=== PATIENT | female | born 1965 | race Caucasian/White ===

== ENCOUNTER 2021-02-23 19:42 | Inpatient (IN) | payer OTHER ==
[~2021-02-23] VITALS: Ht 170.2 cm; Wt 97.6 kg
[2021-02-23 20:34] LABS: Basophils # (auto) 0.1 10 ^3/uL (0-0.2); Basophils % (auto) 0.8 % (0.0-2.0); Eosinophils # (auto) 0.3 10 ^3/uL (0-0.8); Eosinophils % (auto) 4.1 % (0.0-7.0); Hematocrit 26.9 % (36.0-46.0); Lymphocytes # (auto) 0.9 10 ^3/uL (0.4-5.4); Lymphocytes % (auto) 10.5 % (10.0-50.0); Mean Corpuscular Hemoglobin 30.5 pg (28.0-32.0); Mean Corpuscular Hgb Conc. 33.6 g/dL (32.0-36.0); Mean Corpuscular Volume 90.6 fL (80.0-100.0); Monocytes # (auto) 0.5 10 ^3/uL (0-1.3); Monocytes % (auto) 6.1 % (0.0-12.0); Neutrophils # (auto) 6.5 10 ^3/uL (1.6-8.6); Neutrophils % (auto) 78.5 % (37.0-80.0); Red Blood Cells 2.96 10^6/uL (4.0-5.20); White Blood Cell 8.3 10^3/uL (4.4-10.8)
[2021-02-23 20:51] LABS: Magnesium 2.4 mg/dL (1.6-2.6)
[2021-02-23 20:55] LABS: BUN/Creatinine Ratio 11.8; Bilirubin, Total 0.3 mg/dL (0.2-1.0); Total Protein 7.2 g/dL (6.4-8.2)
[2021-02-23 20:58] LABS: INR 1.11 (0.9-1.15); Partial Thromboplastin Time 26.2 sec (23.6-33.0)
[2021-02-23 21:47] LABS: Potassium 5.7 mmol/L (3.5-5.1)
[2021-02-23] MEDS ORDERED: SODIUM BICARBONATE 8.4 % INJ 50ML VIAL IV ONE (22:00)
[2021-02-23] MEDS ORDERED: CALCIUM GLUC 1,000mg/50ml-NS 50 ML IV ONE (22:00)
[2021-02-23] MEDS ORDERED: DOCUSATE SOD 100 MG CAP PO PRN (22:30)
[2021-02-23] MEDS ORDERED: ACETAMINOPHEN 325 MG TAB PO PRN (22:30)
[2021-02-23] MEDS ORDERED: MORPHINE SULFATE INJECTION 2 MG/ML SYRG IV PRN (22:30)
[2021-02-23] MEDS ORDERED: NITROGLYCERIN 0.4 MG SL TAB SL PRN (22:30)
[2021-02-23] MEDS ORDERED: DEXTROSE (50%) 50ML SYRG IV PRN (22:30)
[2021-02-24 01:50] LABS: Urine Bacteria FEW /hpf (None Seen); Urine Blood 1+ /uL (Negative); Urine Specific Gravity 1.014 (1.001-1.035); Urine WBC 182 /hpf (0 - 5)
[2021-02-24] MEDS: MORPHINE SULFATE 4 MG/ML SYR/VIAL IV PRN (02:30)
[2021-02-24] MEDS: ONDANSETRON HCL 4 MG/2 ML VIAL IV PRN (02:30)
[2021-02-24] MEDS: HYDROcodone-ACET 5/325MG TAB PO PRN ×3 (03:40→18:50)
[2021-02-24] MEDS: SODIUM CHLOR 0.9% PF (SALINE LOCK) 10ML VIAL/SYR IV SCH ×3 (06:15→22:00)
[2021-02-24] MEDS ORDERED: cefTRIAXone 1GM/50ML D5W 50 ML IV ONE (06:30)
[2021-02-24 06:42] LABS: Eosinophils # (auto) 0.3 10 ^3/uL (0-0.8); Hemoglobin 7.6 g/dL (12.2-16.2); Lymphocytes # (auto) 1.2 10 ^3/uL (0.4-5.4); Monocytes # (auto) 0.5 10 ^3/uL (0-1.3)
[2021-02-24 06:46] LABS: Basophils # (auto) 0.1 10 ^3/uL (0-0.2); Basophils % (auto) 0.8 % (0.0-2.0); Eosinophils % (auto) 4.1 % (0.0-7.0); Hematocrit 22.4 % (36.0-46.0); Lymphocytes % (auto) 15.1 % (10.0-50.0); Mean Corpuscular Hemoglobin 31.4 pg (28.0-32.0); Mean Corpuscular Volume 92.1 fL (80.0-100.0); Monocytes % (auto) 5.9 % (0.0-12.0); Neutrophils # (auto) 5.7 10 ^3/uL (1.6-8.6); Neutrophils % (auto) 74.1 % (37.0-80.0); Red Blood Cells 2.43 10^6/uL (4.0-5.20); Red Cell Distribution Width 14.7 % (11.8-14.3); White Blood Cell 7.8 10^3/uL (4.4-10.8)
[2021-02-24] MEDS: ACCU-CHEK COMFORT CURVE STRIP VI SCH ×4 (06:56→22:00)
[2021-02-24] MEDS: InsuLIN REG 1unit/0.01ml Soln (100units/ml) SC SCH ×3 (06:56→17:00)
[2021-02-24 07:03] LABS: Albumin 2.5 g/dL (3.4-5.0); Calcium 8.5 mg/dL (8.5-10.1)
[2021-02-24 07:07] LABS: BUN/Creatinine Ratio 12.3; Bilirubin, Total 0.2 mg/dL (0.2-1.0); Total Protein 6.2 g/dL (6.4-8.2)
[2021-02-24 07:28] LABS: Cholesterol 111 mg/dL (< 200); Triglycerides 95 mg/dL (< 150)
[2021-02-24 07:30] LABS: HDL Cholesterol 62 mg/dL (40-59); LDL Cholesterol 38 mg/dL (< 100)
[2021-02-24 08:35] LABS: Potassium 5.8 mmol/L (3.5-5.1)
[2021-02-24] MEDS ORDERED: SODIUM CHL 0.9% 1000 ML BAG XX ONE (09:00)
[2021-02-24] MEDS ORDERED: SODIUM ZIRCONIUM CYCL 10 GM PAK PO ONE (09:00)
[2021-02-24 09:18] VITALS: BP 158/74
[2021-02-24] MEDS: ASCORBIC ACID 500 MG TAB PO SCH (10:10)
[2021-02-24] MEDS: HEPARIN SODIUM (PORCINE) 5000 UNITS/ML 1ML VIAL SC SCH (10:10)
[2021-02-24] MEDS: ZINC SULFATE 220mg CAP or TAB PO SCH (10:10)
[2021-02-24] MEDS: SEVELAMER 800 MG TAB PO SCH ×3 (10:11→18:50)
[2021-02-24] MEDS: B-COMPLEX W/ C & FOLIC ACID(NEPHROVITE TAB) PO SCH (10:11)
[2021-02-24] MEDS: FAMOTIDINE (10MG/ML) 2ML VL IV SCH (10:12)
[2021-02-24] MEDS: FUROSEMIDE 20 MG/2 ML VIAL IV SCH (10:13)
[2021-02-24 10:44] LABS: % Iron Saturation 14.7 % (15-50)
[2021-02-24] MEDS ORDERED: CHOL20007 PO (10:48)
[2021-02-24] MEDS ORDERED: HYDR-4833 PO (10:55)
[2021-02-24] MEDS ORDERED: TORS20TA19 GT (10:55)
[2021-02-24] MEDS ORDERED: CALC0.25 PO (10:55)
[2021-02-24] MEDS ORDERED: FERR28TA2 PO (10:55)
[2021-02-24] MEDS ORDERED: SEVE800T8 PO (10:55)
[2021-02-24 11:15] VITALS: BP 158/74
[2021-02-24] MEDS ORDERED: SODIUM ZIRCONIUM CYCL 10 GM PAK PO SCH (14:00)
[2021-02-24 16:26] VITALS: BP 159/69
[2021-02-24] MEDS ORDERED: LIDOCAINE HCL (LOCAL ANESTH.) 0.5 % 50ML MDV IJ ONE ×2 (20:30→20:45)
[2021-02-24] MEDS ORDERED: EPOETIN ALFA-EPBX 4,000 UNIT/ML VIAL SC ONE (21:00)
[2021-02-24 22:00] VITALS: BP 170/72
[2021-02-24] MEDS ORDERED: InsuLIN REG 1unit/0.01ml Soln (100units/ml) SC SCH (22:00)
[2021-02-25] MEDS: HEPARIN SODIUM (PORCINE) 5000 UNITS/ML 1ML VIAL SC SCH ×3 (00:35→22:00)
[2021-02-25] MEDS: HYDROcodone-ACET 5/325MG TAB PO PRN ×2 (00:39→10:04)
[2021-02-25] MEDS: ASCORBIC ACID 500 MG TAB PO SCH ×3 (00:52→22:15)
[2021-02-25] MEDS: MORPHINE SULFATE 4 MG/ML SYR/VIAL IV PRN ×3 (01:12→13:23)
[2021-02-25] MEDS ORDERED: HYDR-4798 PO (01:26)
[2021-02-25] MEDS ORDERED: TRAZ1TAB12 PO (01:27)
[2021-02-25 05:00] VITALS: BP 161/61
[2021-02-25] MEDS: hydrALAZINE HCL 20 MG/ML VL IV PRN ×2 (05:31→11:54)
[2021-02-25] MEDS: SODIUM CHLOR 0.9% PF (SALINE LOCK) 10ML VIAL/SYR IV SCH ×3 (05:32→22:07)
[2021-02-25 06:01] LABS: BUN/Creatinine Ratio 10.3; Calcium 8.2 mg/dL (8.5-10.1); Potassium 4.3 mmol/L (3.5-5.1)
[2021-02-25] MEDS: ACCU-CHEK COMFORT CURVE STRIP VI SCH ×2 (06:16→11:45)
[2021-02-25] MEDS: InsuLIN REG 1unit/0.01ml Soln (100units/ml) SC SCH ×2 (06:16→11:30)
[2021-02-25 08:00] VITALS: BP 149/59
[2021-02-25 09:00] VITALS: BP 141/55
[2021-02-25] MEDS: FUROSEMIDE 20 MG/2 ML VIAL IV SCH (10:02)
[2021-02-25] MEDS: ZINC SULFATE 220mg CAP or TAB PO SCH (10:04)
[2021-02-25] MEDS: B-COMPLEX W/ C & FOLIC ACID(NEPHROVITE TAB) PO SCH (10:04)
[2021-02-25] MEDS: SEVELAMER 800 MG TAB PO SCH ×3 (10:04→17:52)
[2021-02-25 13:00] VITALS: BP 150/61
[2021-02-25] MEDS ORDERED: SODIUM ZIRCONIUM CYCL 10 GM PAK PO SCH (14:00)
[2021-02-25] MEDS ORDERED: amLODIPine BESYLATE 5 MG TAB PO ONE (16:00)
[2021-02-25 17:00] VITALS: BP_SYST 135; BP_SYST 183; BP_DIAS 68; BP_DIAS 70
[2021-02-25] MEDS: HYDROcodone-ACET 10/325MG TAB PO PRN ×2 (17:53→22:15)
[2021-02-25] MEDS: ONDANSETRON HCL 4 MG/2 ML VIAL IV PRN (17:59)
[2021-02-25] MEDS ORDERED: INSLANTI SC (20:38)
[2021-02-25 22:00] VITALS: BP 156/74
[2021-02-25] MEDS ORDERED: TEMAZEPAM 15 MG CAP PO ONE (22:15)
[2021-02-25] MEDS ORDERED: hydrALAZINE HCL 10 MG TAB PO PRN (22:15)
[2021-02-26] MEDS: HYDROcodone-ACET 10/325MG TAB PO PRN ×6 (02:07→23:15)
[2021-02-26 05:00] VITALS: BP 134/62
[2021-02-26] MEDS: SODIUM CHLOR 0.9% PF (SALINE LOCK) 10ML VIAL/SYR IV SCH ×3 (05:32→21:50)
[2021-02-26 08:00] VITALS: BP 149/68
[2021-02-26] MEDS: SEVELAMER 800 MG TAB PO SCH ×3 (08:40→17:51)
[2021-02-26] MEDS: B-COMPLEX W/ C & FOLIC ACID(NEPHROVITE TAB) PO SCH (08:51)
[2021-02-26] MEDS: FUROSEMIDE 20 MG/2 ML VIAL IV SCH (08:51)
[2021-02-26] MEDS: FAMOTIDINE (10MG/ML) 2ML VL IV SCH (08:51)
[2021-02-26] MEDS: ZINC SULFATE 220mg CAP or TAB PO SCH (08:51)
[2021-02-26] MEDS: amLODIPine BESYLATE 5 MG TAB PO SCH (08:52)
[2021-02-26] MEDS: ASCORBIC ACID 500 MG TAB PO SCH ×2 (08:52→21:51)
[2021-02-26] MEDS: HEPARIN SODIUM (PORCINE) 5000 UNITS/ML 1ML VIAL SC SCH ×2 (08:52→21:51)
[2021-02-26 08:54] VITALS: BP 149/68
[2021-02-26 12:48] VITALS: BP 151/77
[2021-02-26] MEDS: ONDANSETRON HCL 4 MG/2 ML VIAL IV PRN (12:56)
[2021-02-26 16:58] VITALS: BP 164/74
[2021-02-26 21:55] VITALS: BP 156/64
[2021-02-26] MEDS ORDERED: TEMAZEPAM 15 MG CAP PO ONE (22:30)
[2021-02-27] MEDS: HYDROcodone-ACET 10/325MG TAB PO PRN ×2 (02:48→07:23)
[2021-02-27 05:15] VITALS: BP 163/69
[2021-02-27] MEDS: SODIUM CHLOR 0.9% PF (SALINE LOCK) 10ML VIAL/SYR IV SCH ×2 (05:58→14:00)
[2021-02-27] MEDS ORDERED: SODIUM CHL 0.9% 1000 ML BAG XX ONE (07:00)
[2021-02-27 07:48] LABS: Basophils # (auto) 0 10 ^3/uL (0-0.2); Basophils % (auto) 0.6 % (0.0-2.0); Eosinophils # (auto) 0.3 10 ^3/uL (0-0.8); Eosinophils % (auto) 5.4 % (0.0-7.0); Hematocrit 21.8 % (36.0-46.0); Hemoglobin 7.4 g/dL (12.2-16.2); Lymphocytes # (auto) 0.8 10 ^3/uL (0.4-5.4); Lymphocytes % (auto) 13.7 % (10.0-50.0); Mean Corpuscular Hemoglobin 30.7 pg (28.0-32.0); Mean Corpuscular Hgb Conc. 33.8 g/dL (32.0-36.0); Mean Corpuscular Volume 90.7 fL (80.0-100.0); Monocytes # (auto) 0.4 10 ^3/uL (0-1.3); Monocytes % (auto) 6.3 % (0.0-12.0); Neutrophils # (auto) 4.4 10 ^3/uL (1.6-8.6); Red Cell Distribution Width 15.2 % (11.8-14.3)
[2021-02-27 09:00] VITALS: BP 166/71
[2021-02-27] MEDS: HEPARIN SODIUM (PORCINE) 5000 UNITS/ML 1ML VIAL SC SCH (10:00)
[2021-02-27] MEDS: ZINC SULFATE 220mg CAP or TAB PO SCH (10:06)
[2021-02-27] MEDS: SEVELAMER 800 MG TAB PO SCH ×2 (10:06→13:01)
[2021-02-27] MEDS: FUROSEMIDE 20 MG/2 ML VIAL IV SCH (10:06)
[2021-02-27] MEDS: amLODIPine BESYLATE 5 MG TAB PO SCH (10:07)
[2021-02-27] MEDS: B-COMPLEX W/ C & FOLIC ACID(NEPHROVITE TAB) PO SCH (10:07)
[2021-02-27] MEDS: ASCORBIC ACID 500 MG TAB PO SCH (10:07)
[2021-02-27] MEDS ORDERED: METOPROLOL TARTRATE 25 MG TAB PO ONE (11:45)
[2021-02-27] MEDS ORDERED: MORPHINE SULFATE INJECTION 2 MG/ML SYRG IV PRN (11:45)
[2021-02-27 11:49] LABS: Hepatitis A Ab IgM Negative; Hepatitis B Core IgM Negative
[2021-02-27 11:50] LABS: Hepatitis C Antibody Negative (Negative)
[2021-02-27 13:00] VITALS: BP 133/71
[2021-02-27] MEDS ORDERED: MET25T PO (13:15)
[2021-02-27] MEDS ORDERED: ASPI-378 PO (13:23)
[2021-02-27 16:12] VITALS: BP 134/67
[2021-02-27 17:00] VITALS: BP 185/70
[2021-02-27] MEDS ORDERED: EPOETIN ALFA-EPBX 10,000 UNIT/1ML VIAL SC ONE (21:00)
[2021-02-27] MEDS ORDERED: METOPROLOL TARTRATE 25 MG TAB PO SCH (22:00)
[2021-02-27] MEDS ORDERED: INSULIN LANTUS (GLARGINE) 1 /0.01ml (100units/ml) SC SCH (22:00)
[2021-02-27] MEDS ORDERED: traZODone HCL 50 MG TAB PO SCH (22:00)
== END 2021-02-27 17:30 | disposition home or self-care (01) | DRG 291 ==
LOC: ER 19:42 → TELE 22:30 → TELE-CENTR 02-24 07:46
PROVIDERS: ADMIT Nurse Practitioner Family; ATTEND Internal Medicine
PROC: 5A1D70Z Performance of Urinary Filtration, Intermittent, Less than 6 Hours Per Day (ICD-10-PCS; principal; 2021-02-24)
DX: I13.2 Hypertensive heart and chronic kidney disease with heart failure and with stage 5 chronic kidney disease, or end stage renal disease (principal); I50.33 Acute on chronic diastolic (congestive) heart failure; N17.1 Acute kidney failure with acute cortical necrosis; N18.6 End stage renal disease; I69.354 Hemiplegia and hemiparesis following cerebral infarction affecting left non-dominant side; Z20.822 Contact with and (suspected) exposure to COVID-19; D63.1 Anemia in chronic kidney disease; E87.5 Hyperkalemia; E11.65 Type 2 diabetes mellitus with hyperglycemia; E11.22 Type 2 diabetes mellitus with diabetic chronic kidney disease; L89.90 Pressure ulcer of unspecified site, unspecified stage; Z74.01 Bed confinement status; Z99.2 Dependence on renal dialysis; Z90.710 Acquired absence of both cervix and uterus; Z88.8 Allergy status to other drugs, medicaments and biological substances
CPT/HCPCS: 36415; 51702; 71045; 80048; 80053; 80061; 80074; 81001; 82306; 82728; 82962; 83036; 83540; 83550; 83735; 83880; 83970; 84100; 84132; 84484; 85025; 85610; 85730; 87081; 87340; 87426; 90935; 93005; 93306; 96365; 96367; 96375; 97116; 97163; 97530; 99291; G0378; J0696; J1815; J2405; J3490